=== PATIENT | female | born 1945 | race Caucasian/White ===

== ENCOUNTER 2018-03-22 07:58 | Day surgery (SDC) | payer MEDICARE, SELFPAY ==
--- NOTE | 2018-03-19 12:59 | PM.PREOP ---
Pre-operative Note Interval Note History & Physical reviewed/Exam performed by Physician: Yes Changes to H&P: No
--- NOTE | 2018-03-19 13:06 | P.OP_ITS ---
Operative Date/Time/Diagnoses Date of procedure: 03/22/18 Time of procedure: 09:45 Procedure & Clinicians Procedure: Preoperative diagnoses: 1. Left nuclear sclerotic and cortical cataract. Postoperative diagnoses: 1. Cataract removed by phacoemulsification with placement of posterior chamber intraocular lens. Procedure: Phacoemulsification with posterior chamber intraocular lens implant Surgeon: Anai Alamo MD Complications: None Specimen: None Implant:[id number]+17.5 Blood loss: None Anesthesia: Retrobulbar with monitored standby Description of procedure: Patient presents with a complaint of decreased vision due to cataract which is affecting activities of daily living. The patient wants surgery to improve vision. The patient was taken to the operating room and given IV sedation. A retrobulbar block insert consisting of 6 cc of 2% xylocaine without epinephrine mixed half and half with 0.5% Marcaine with 1 cc of hyaluronidase added is placed between the medial and lateral 1/3 of the inferior orbital rim. Lid akinesia is obtain with 1% xylocaine with epinephrine infiltrated along the lid margin. The eye is manually massaged for 30 sec, prepped using Betadine solution, and draped in the usual sterile fashion. Temporal approach was made, a 1 mm side-port incision was made 90? from the proposed clear corneal incision position. Phenylephrine 1.5% mixed with 1% xylocaine 0.2 cc was placed into the anterior chamber. Viscoat followed by Selin was then placed. A 2.6 mm clear incision with a 2.6 mm blade was placed. A 360 degree capsulorrhexis style capsulotomy was then performed with a cystitome needle on a Healon. Hydrodelineation and hydrodissection were performed. The phacoemulsification unit is introduced, and sculpting used to groove the central lens. It is then removed in chopping mode. Epi nucleus is removed with epinuclear mode and irrigation aspiration was used to remove the peripheral cortex. The posterior capsule is polished. The intraocular lens is selected, inspected, power confirmed, and placed in the posterior chamber. The pupil was constricted with Miostat.. The wound was stromally hydrated and tested for leaks, there was none and it was left sutureless. Vigamox 0.1 cc was placed into the anterior chamber. Kenalog 0.2 cc was placed in the superior subconjunctival space. A drop of antibiotic and was placed and the eye was patched and shielded. The patient was stable and returned to the recovery room in excellent condition. Dictated by: Anai Alamo MD Copy to: [facility]
[2018-03-22 08:50] VITALS: BP 136/72; PULSE 59; RESP 18; TEMP 36.3; O2SAT 95; BMI 33.3
[2018-03-22] MEDS: PROPARACAINE 0.5% OPHTH SOL 2 DROPS EYE-OP (08:50)
[2018-03-22] MEDS: CATARACT EYE COMPOUND (10 DROPS/SYRINGE) 3 DROPS EYE-OP ×3 (08:55→09:05)
[2018-03-22] MEDS: CHONDROIDTIN/SOD HYALURONATE 1.05 ML SYRINGE INTRAOCULA (10:16)
[2018-03-22] MEDS: HYALURONATE SODIUM 10 MG/ML SYRINGE INJ (10:16)
[2018-03-22] MEDS: CARBACHOL 1.5 ML VIAL INJ (10:16)
[2018-03-22] MEDS: BALANCED SALT IRRIG SOLN NO.2 15 ML IRR (10:16)
[2018-03-22] MEDS: MOXIFLOXACIN OPHTH DROPS 3 ML BOTTLE 2 DROPS INJ (10:17)
[2018-03-22] MEDS: NEOMYCIN/POLY/DEX OPHTH OINT 1 APPLIC EYE-LEFT (10:17)
[2018-03-22] MEDS: LIDOCAINE 1% W/EPI INJ 20 ML INJ (10:17)
[2018-03-22] MEDS: OFLOXACIN 0.3% OPHTH 5 ML 2 DROPS EYE-LEFT (10:18)
[2018-03-22] MEDS: PHENYLEPHRINE/LIDOCAINE VIAL (OR) 0.2 ML EYE-OP (10:18)
[2018-03-22] MEDS: TRIAMCINOLONE 50 MG/5 ML VIAL INJ (10:19)
[2018-03-22] MEDS: BALANCED SALT IRRIG SOLN NO.2 500 ML, EPINEPHrine 1 MG IRR (10:19)
[2018-03-22] MEDS: LIDOCAINE 2% 4 ML, BUPIVACAINE 0.5% (PF) 4 ML, HYALURONIDASE 150 UNIT INJ (10:20)
[2018-03-22 10:35] VITALS: BP 130/67; PULSE 55; RESP 15; TEMP 36.2; O2SAT 100
== END 2018-03-22 10:55 | disposition home or self-care (01) ==
LOC: OR 08:00
PROVIDERS: PCP Family Medicine; Visit Provider Ophthalmology
DX: H25.12 Age-related nuclear cataract, left eye (principal); I10 Essential (primary) hypertension
CPT/HCPCS: J0171; J2250; J2704; J3010; J3301; J3470

== ENCOUNTER 2018-04-05 06:27 | Day surgery (SDC) | payer MEDICARE, SELFPAY ==
--- NOTE | 2018-03-30 08:55 | PM.PREOP ---
Pre-operative Note Interval Note History & Physical reviewed/Exam performed by Physician: Yes Changes to H&P: No
--- NOTE | 2018-04-04 14:28 | PM.OP.1 ---
Operative Date/Time/Diagnoses Date of procedure: 04/05/18 Time of procedure: 07:45 Procedure & Clinicians Procedure: Preoperative diagnoses: 1. Right nuclear sclerotic and cortical cataract. 2. GERD Postoperative diagnoses: 1. Cataract removed by phacoemulsification with placement of posterior chamber intraocular lens. Procedure: Phacoemulsification with posterior chamber intraocular lens implant Surgeon: Anai Alamo MD Complications: None Specimen: None Implant: ZCBOO+18.0 Blood loss: None Anesthesia: Retrobulbar with monitored standby Description of procedure: Patient presents with a complaint of decreased vision due to cataract which is affecting activities of daily living. The patient wants surgery to improve vision. The patient was taken to the operating room and given IV sedation. A retrobulbar block consisting of 6 cc of 2% xylocaine without epinephrine mixed half and half with 0.5% Marcaine with 1 cc of hyaluronidase added is placed between the medial and lateral 1/3 of the inferior orbital rim. Lid akinesia is obtain with 1% xylocaine with epinephrine infiltrated along the lid margin. The eye is manually massaged for 30 sec, prepped using Betadine solution, and draped in the usual sterile fashion. Temporal approach was made, a 1 mm side-port incision was made 90? from the proposed clear corneal incision position. Phenylephrine 1.5% mixed with 1% xylocaine 0.2 cc was placed into the anterior chamber. Viscoat followed by Selin was then placed. A 2.6 mm clear incision with a 2.6 mm blade was placed. A 360 degree capsulorrhexis style capsulotomy was then performed with a cystitome needle on a Healon. Hydrodelineation and hydrodissection were performed. The phacoemulsification unit is introduced, and sculpting notice used to groove the central lens. It is then removed in chopping mode. Epi nucleus is removed with epinuclear mode and irrigation aspiration was used to remove the peripheral cortex. The posterior capsule is polished. The intraocular lens is selected, inspected, power confirmed, and placed in the posterior chamber. The pupil was constricted with Miostat.. The wound was stromally hydrated and tested for leaks, there was none and it was left sutureless. Vigamox 0.1 cc was placed into the anterior chamber. Kenalog 0.2 cc was placed in the superior subconjunctival space. A drop of antibiotic and was placed and the eye was patched and shielded. The patient was stable and returned to the recovery room in excellent condition. Dictated by: Anai Alamo MD Copy to: [facility]
[2018-04-05] MEDS: PROPARACAINE 0.5% OPHTH SOL 2 DROPS EYE-OP (07:20)
[2018-04-05 07:29] VITALS: BP 140/82; PULSE 60; RESP 20; TEMP 36.3; O2SAT 96
[2018-04-05 07:31] VITALS: BMI 33.6
--- NOTE | 2018-04-05 07:35 | PM.PREOP ---
Pre-operative Note Interval Note History & Physical reviewed/Exam performed by Physician: Yes Changes to H&P: No
[2018-04-05] MEDS: CATARACT EYE COMPOUND (10 DROPS/SYRINGE) 3 DROPS EYE-OP (07:37)
[2018-04-05] MEDS: CARBACHOL 1.5 ML VIAL INJ (08:13)
[2018-04-05] MEDS: BALANCED SALT IRRIG SOLN NO.2 15 ML IRR (08:13)
[2018-04-05] MEDS: HYALURONATE SODIUM 10 MG/ML SYRINGE INJ (08:14)
[2018-04-05] MEDS: LIDOCAINE 1% W/EPI INJ 20 ML INJ (08:14)
[2018-04-05] MEDS: MOXIFLOXACIN OPHTH DROPS 3 ML BOTTLE 2 DROPS INJ (08:14)
[2018-04-05] MEDS: CHONDROIDTIN/SOD HYALURONATE 1.05 ML SYRINGE INTRAOCULA (08:14)
[2018-04-05] MEDS: OFLOXACIN 0.3% OPHTH 5 ML 2 DROPS EYE-RIGHT (08:15)
[2018-04-05] MEDS: NEOMYCIN/POLY/DEX OPHTH OINT 1 APPLIC EYE-RIGHT (08:15)
[2018-04-05] MEDS: TRIAMCINOLONE 50 MG/5 ML VIAL INJ (08:16)
[2018-04-05] MEDS: PHENYLEPHRINE/LIDOCAINE VIAL (OR) 0.2 ML EYE-OP (08:16)
[2018-04-05] MEDS: BALANCED SALT IRRIG SOLN NO.2 500 ML, EPINEPHrine 1 MG IRR (08:17)
[2018-04-05] MEDS: LIDOCAINE 2% 4 ML, BUPIVACAINE 0.5% (PF) 4 ML, HYALURONIDASE 150 UNIT INJ (08:17)
[2018-04-05 08:49] VITALS: BP 128/64; PULSE 48; RESP 12; TEMP 36.2; O2SAT 97
== END 2018-04-05 09:15 | disposition home or self-care (01) ==
PROVIDERS: Visit Provider Ophthalmology
DX: H25.11 Age-related nuclear cataract, right eye (principal); K21.9 Gastro-esophageal reflux disease without esophagitis
CPT/HCPCS: J0171; J2250; J3010; J3301; J3470

== ENCOUNTER 2022-07-16 14:29 | Emergency (ER) | payer MEDICARE, SELFPAY ==
[2022-07-16 14:32] VITALS: BP 122/79; PULSE 96; RESP 15; TEMP 36.3; O2SAT 96; BMI 34.7
--- NOTE | 2022-07-16 14:39 | DI.RAD.S_ITS ---
PROCEDURE: XR LUMBAR SPINE 2-3V INDICATIONS: Fall with radiculopathy TECHNIQUE: 3 views of the lumbar spine were acquired. COMPARISON: None. FINDINGS: Bones: 5 [id number] vertebrae are present. Trace dextroconvex curvature of the lumbar spine. There is 2 mm grade 1 retrolisthesis at L1-2, 3 mm grade 1 retrolisthesis at L2-3, 4 mm grade 1 anterolisthesis at L4-5, and 3 mm grade 1 anterolisthesis at L5-S1. No vertebral body compression fractures. No suspicious bony lesions. Multilevel disc space narrowing degenerative endplate changes and facet hypertrophy are seen. Generalized osteopenia. Soft tissues: Overlying bowel gas pattern is normal. No suspicious soft tissue calcifications. Surgical clips are seen projecting over the right pelvis. IMPRESSION: 1. No acute osseous abnormality. If the symptoms persist, consider cross sectional imaging such as MRI or CT for further assessment. 2. Moderate multilevel spondylosis and degenerative spondylolisthesis. Approved by: Jesus Hanna M.D. on 07/16/2022 at 15:22
--- NOTE | 2022-07-16 14:39 | DI.RAD.S_ITS ---
PROCEDURE: XR TIBIA FUBULA RT 2V INDICATIONS: Fall with radiculopathy TECHNIQUE: 2 views of the tibia and fibula were acquired. COMPARISON: None. FINDINGS: Bones: No acute fractures or dislocations. No suspicious bony lesions. Soft tissues: Chondrocalcinosis noted in the lateral femorotibial compartment. IMPRESSION: 1. No acute osseous abnormality. If clinical suspicion and/or symptoms persist, additional imaging with repeat plain films, or advanced imaging (e.g. CT, MRI) may be helpful for further assessment. 2. Chondrocalcinosis. Approved by: Jesus Hanna M.D. on 07/16/2022 at 15:24
--- NOTE | 2022-07-16 14:43 | ED_ITS ---
HPI - Fall <Naz Claudio Jjnydia [facility] - Last Filed: 07/16/22 15:51> General Chief Complaint: Fall Stated Complaint: fall,right leg injury Time Seen by Provider: 07/16/22 14:34 Source: patient Mode of arrival: Wheelchair History of Present Illness HPI Narrative: This is a 77-year-old female emergency department after a fall at 10:00 in which she hurt her right lower leg. States that she has a history of low back pain, has been working in the [employer] and having more activity than usual recently, states that her right leg just gave out which could have been due to her sciatica and she fell down hurting her right leg. Denies hitting her head, she is not anticoagulated, states that she has had urinary frequency and urgency, dysuria and has had more physical activity this week than usual. She denies any numbness or tingling, weakness, shooting or nerve like pain at this time. She states that her pain is a 3/10 at rest, it is worse when she bears weight. Her pain is on the lateral aspect of her right lower leg. Related Data Home Medications Medication Instructions Recorded Confirmed fluticasone propionate 220 1 puff INH BID PRN Shortness Of 04/10/12 03/22/18 mcg/actuation HFA aerosol inhaler Breath ##0 (Flovent HFA) Multi Vitamin 03/22/18 losartan 25 mg tablet 50 mg PO QAM 03/22/18 03/22/18 Flonase Allergy Relief 1 spr/day inhalation 04/05/18 albuterol sulfate 2 puff inhalation QID PRN Dyspnea 04/05/18 04/05/18 naproxen sodium 220 mg PO BID 04/05/18 04/05/18 omeprazole 20 mg PO BID 04/05/18 04/05/18 oxybutynin chloride 1 tab PO TID PRN Bladder Spasms 04/05/18 04/05/18 oxybutynin chloride 5 mg PO DAILY 04/05/18 04/05/18 valacyclovir 1 tab PO BID PRN Rash 04/05/18 04/05/18 Previous Rx's Medication Instructions Recorded cephalexin 500 mg capsule 500 mg PO QID 7 days #28 caps 07/16/22 diclofenac sodium 1 % topical gel 2 g topical QID PRN Pain #100 grams 07/16/22 hydrocodone 5 mg-acetaminophen 325 1 tab PO BID PRN pain #14 tabs 07/16/22 mg tablet lidocaine 5 % topical patch 1 patch topical DAILY PRN pain #30 07/16/22 (Lidoderm) ea prednisone 20 mg tablet 20 mg PO DAILY #3 tabs 07/16/22 Allergies Allergy/AdvReac Type Severity Reaction Status Date / Time No Known Drug Allergies Allergy Verified 07/16/22 14:34 Review of Systems <JEANNETTE Pizarro - Last Filed: 07/16/22 15:51> Review of Systems ROS Unobtainable: All systems reviewed & are unremarkable except as noted in HPI and below Patient History <JEANNETTE Pizarro - Last Filed: 07/16/22 15:51> Social History household members: none Smoking Status: Unknown if ever smoked Smoking Status: Unknown if ever smoked alcohol intake frequency: holidays/special occasions only Substance Use Type: does not use Exam <JEANNETTE Pizarro - Last Filed: 07/16/22 15:51> Narrative Exam Narrative: Reviewed vitals signs and nursing notes. General: Pleasant, sitting upright, in no acute distress, well groomed, afebrile HEENT: symmetrical facial expressions, moist mucous membranes, neck is supple CV: regular rate and rhythm, warm extremities Respiratory: normal work of breathing, without tachypnea or hypoxia. GI: abdomen soft, nondistended, without CVA tenderness bilaterally. MSK: moves all extremities, no weakness, normal tone, sitting in wheelchair, small abrasion on lateral aspect her right lower leg, nontender lumbar and sacral spine to palpation, no tenderness over her right hip, no knee tenderness to palpation, full range of motion of her right knee without deficit. No ankle pain, knee pain, some right posterior hip pain. No evidence wound or injury other than a small abrasion on her right lower leg. Right leg lift exacerbates her low back pain but she denies back pain at rest. No flank pain bilaterally Skin: brisk capillary refill, without rash or wound Neuro: clear speech and normal cognition, A&O x3, GCS 15, no focal motor or sensation deficits Initial Vital Signs Initial Vital Signs: Vital Signs Temperature 97.4 F L 05/26/23 14:32 Pulse Rate 96 H 07/16/22 14:32 Respiratory Rate 15 07/16/22 14:32 Blood Pressure 122/79 07/16/22 14:32 Pulse Oximetry 96 07/16/22 14:32 Oxygen Delivery Method Room Air 07/16/22 14:32 <Jay Cedillo DO - Last Filed: 07/16/22 15:54> Initial Vital Signs Initial Vital Signs: Vital Signs Temperature 97.4 F L 07/16/22 14:32 Pulse Rate 96 H 07/16/22 14:32 Respiratory Rate 15 07/16/22 14:32 Blood Pressure 122/79 07/16/22 14:32 Pulse Oximetry 96 07/16/22 14:32 Oxygen Delivery Method Room Air 07/16/22 14:32 Course <JEANNETTE Pizarro - Last Filed: 07/16/22 15:51> Orders Ordered: ED Orders 07/16/22 14:39 XR lumbar spine 2-3V Stat XR tibia fibula RT 2V Stat 07/16/22 14:49 Urine Culture Stat Urine Microscopic Stat Discontinued Medications Hydrocodone Bitart/Acetaminophen (Hydrocodone/Acet 5/325 Tablet) 1 tab PO NOW ONE Stop: 07/16/22 14:43 Last Admin: 07/16/22 15:04 Dose: 1 tab Documented By: SELVIN Cephalexin HCl (Cephalexin 250 Mg Capsule) 500 mg PO NOW ONE Stop: 07/16/22 15:04 Last Admin: 07/16/22 15:08 Dose: 500 mg Documented By: SELVIN Lidocaine (Lidocaine Patch 1 Each Adh..Patch) 1 each TOP NOW ONE Stop: 07/16/22 14:43 Last Admin: 07/16/22 15:04 Dose: 1 each Documented By: SELVIN Methocarbamol (Methocarbamol 500 Mg Tablet) 250 mg PO NOW ONE Stop: 07/16/22 15:04 Last Admin: 07/16/22 15:09 Dose: 250 mg Documented By: SELVIN Prednisone (Prednisone 20 Mg Tablet) 20 mg PO NOW ONE Stop: 07/16/22 14:43 Last Admin: 07/16/22 15:04 Dose: 20 mg Documented By: SELVIN Vital Signs Vital signs: Vital Signs - 8 hr 07/16/22 14:32 Temperature 97.4 F L Pulse Rate 96 H Respiratory Rate 15 Blood Pressure 122/79 Pulse Oximetry 96 Oxygen Delivery Method Room Air <Jay Cedillo DO - Last Filed: 07/16/22 15:54> Orders Ordered: ED Orders 07/16/22 14:39 XR lumbar spine 2-3V Stat XR tibia fibula RT 2V Stat 07/16/22 14:49 Urine Culture Stat Urine Microscopic Stat Discontinued Medications Hydrocodone Bitart/Acetaminophen (Hydrocodone/Acet 5/325 Tablet) 1 tab PO NOW ONE Stop: 07/16/22 14:43 Last Admin: 07/16/22 15:04 Dose: 1 tab Documented By: SELVIN Cephalexin HCl (Cephalexin 250 Mg Capsule) 500 mg PO NOW ONE Stop: 07/16/22 15:04 Last Admin: 07/16/22 15:08 Dose: 500 mg Documented By: SELVIN Lidocaine (Lidocaine Patch 1 Each Adh..Patch) 1 each TOP NOW ONE Stop: 07/16/22 14:43 Last Admin: 07/16/22 15:04 Dose: 1 each Documented By: SELVIN Methocarbamol (Methocarbamol 500 Mg Tablet) 250 mg PO NOW ONE Stop: 07/16/22 15:04 Last Admin: 07/16/22 15:09 Dose: 250 mg Documented By: SELVIN Prednisone (Prednisone 20 Mg Tablet) 20 mg PO NOW ONE Stop: 07/16/22 14:43 Last Admin: 07/16/22 15:04 Dose: 20 mg Documented By: SELVIN Vital Signs Vital signs: Vital Signs - 8 hr 07/16/22 14:32 Temperature 97.4 F L Pulse Rate 96 H Respiratory Rate 15 Blood Pressure 122/79 Pulse Oximetry 96 Oxygen Delivery Method Room Air MDM - Fall <JEANNETTE Pizarro - Last Filed: 07/16/22 15:51> Lab Data Labs: Lab Results 07/16/22 Range/Units 14:49 Urine RBC None seen (0-5/HPF) Urine WBC 0-1/hpf (0-5/HPF) Ur Squamous Epith Cells 10-30 /hpf H (0-5/HPF) Amorphous Sediment 2+ Urine Bacteria Moderate (10-30) H (None) Urine Mucus 1+ H (Negative) Ur Culture Indicated? Specimen cultured Urine Dip Bedside Urine Glucose Negative Bedside Urine Bilirubin - Negative Bedside Urine Ketone +/- 5 Urine Specific [place] 1.030 Bedside Urine Occult Blood - Negative Bedside Urine pH 6.0 Bedside Urine Protein +/- 15 Bedside Urine Urobilinogen - Negative Bedside Urine Nitrite - Negative Bedside Urine Leukocytes +/- 15 Esterase Imaging Data Extremity x-ray #1: Radiologist's Impression: PROCEDURE:? XR TIBIA FUBULA RT 2V ? INDICATIONS:? Fall with radiculopathy ? TECHNIQUE:? 2 views of the tibia and fibula were acquired.? ? COMPARISON:? None. ? FINDINGS:? ? Bones:? No acute fractures or dislocations.? No suspicious bony lesions.? ? Soft tissues:? Chondrocalcinosis noted in the lateral femorotibial compartment. ? IMPRESSION:? 1. No acute osseous abnormality.? If clinical suspicion and/or symptoms persist, additional imaging with repeat plain films, or advanced imaging (e.g. CT, MRI) may be helpful for further assessment. 2. Chondrocalcinosis.? Approved by: Jesus Hanna M.D. on 07/16/2022 at 15:24? Extremity x-ray #2: Radiologist's Impression: PROCEDURE:? XR LUMBAR SPINE 2-3V ? INDICATIONS:? Fall with radiculopathy ? TECHNIQUE:? 3 views of the lumbar spine were acquired.? ? COMPARISON:? None. ? FINDINGS:? ? Bones:? 5 [id number] vertebrae are present.? Trace dextroconvex curvature of the lumbar spine.? There is 2 mm grade 1 retrolisthesis at L1-2, 3 mm grade 1 retrolisthesis at L2-3, 4 mm grade 1 anterolisthesis at L4-5, and 3 mm grade 1 anterolisthesis at L5-S1. ?No vertebral body compression fractures.? No suspicious bony lesions.? Multilevel disc space narrowing degenerative endplate changes and facet hypertrophy are seen.? Generalized osteopenia. ? Soft tissues:? Overlying bowel gas pattern is normal.? No suspicious soft tissue calcifications.? Surgical clips are seen projecting over the right pelvis. ? IMPRESSION:? 1. No acute osseous abnormality. If the symptoms persist, consider cross sectional imaging such as MRI or CT for further assessment. 2. Moderate multilevel spondylosis and degenerative spondylolisthesis.? Approved by: Jesus Hanna M.D. on 07/16/2022 at 15:22? MDM Narrative Medical decision making narrative: Chief Complaint: Right lower leg pain Independent historian: Patient Multiple etiologies for patient's complaint considered including, but not limited to: Contusion, abrasion, lumbar radiculopathy, urinary tract infection, dehydration, fracture, hematoma, ligamental injury, exacerbation of lumbar degenerative disc disease I have independently reviewed the patient's vital signs and nursing notes as well as prior records if available. My interpretation of imaging: Lumbar x-ray shows multilevel spondylosis and degenerative disc disease, and spondylolisthesis, Tib-fib right leg x-ray is ne gative for acute abnormality but shows chondrocalcinosis. This could be causing patient's pain as this is where she had impact and complains of pain currently. Lidocaine patch was placed over this. Her pain and her symptoms improved over her course. She was requesting crutches for ambulation because she complains is too much pain with bearing weight, axial load does not exacerbate pain. No calf tenderness to palpation or tenderness along the deep vein system. No circumferential edema. My interpretation of lab studies: Urine dip is positive for ketones, leukocytes, sent down for microscopy which shows moderate bacteria. Urine culture is pending, patient was treated with cephalexin and 7 day q.i.d. course was initiated and sent her pharmacy Patient had a trial ambulation with crutches and tolerated this well, they were fitted to her appropriately. She does not have any red flag symptoms of low back pain, nontender over her spinal processes, is able to bear weight, and given crutches for discharge. She will follow up with her primary care provider and her physical therapist and encouraged to avoid exertional activities for least 1 week until her symptoms all improved. Social considerations that may affect disposition: none Questions are addressed and there is agreement with the plan and for follow-up. I consulted with the ED attending physician Dr. Cedillo as needed for higher level of care considerations and they were available for discussion and recommendations regarding plan of care and diagnostic testing. Patient is appropriate for outpatient management. <Jay Cedillo, DO - Last Filed: 07/16/22 15:54> Lab Data Labs: Lab Results 07/16/22 Range/Units 14:49 Urine RBC None seen (0-5/HPF) Urine WBC 0-1/hpf (0-5/HPF) Ur Squamous Epith Cells 10-30 /hpf H (0-5/HPF) Amorphous Sediment 2+ Urine Bacteria Moderate (10-30) H (None) Urine Mucus 1+ H (Negative) Ur Culture Indicated? Specimen cultured Urine Dip Bedside Urine Glucose Negative Bedside Urine Bilirubin - Negative Bedside Urine Ketone +/- 5 Urine Specific [place] 1.030 Bedside Urine Occult Blood - Negative Bedside Urine pH 6.0 Bedside Urine Protein +/- 15 Bedside Urine Urobilinogen - Negative Bedside Urine Nitrite - Negative Bedside Urine Leukocytes +/- 15 Esterase Discharge Plan Departure Patient Disposition: Home Clinical Impression: Chondrocalcinosis, Acute UTI, Osteopenia determined by x-ray, Spondylosis, Spondylolisthesis of lumbar region Fall Qualifiers: Encounter type: initial encounter Qualified Code(s): W19.XXXA - Unspecified fall, initial encounter Contusion of leg, right Qualifiers: Encounter type: initial encounter Qualified Code(s): S80.11XA - Contusion of right lower leg, initial encounter Degenerative disk disease Qualifiers: Spinal region: lumbosacral Qualified Code(s): M51.37 - Other intervertebral dis c degeneration, lumbosacral region Instructions: Contusion, DI for Urinary Tract Infection (UTI), DI for Pseudogout, DI for Degenerative Disc Disease, DI for Lumbar Radiculopathy Activity Restrictions/Additional Instructions: *You have been diagnosed with a urinary tract infection, a fall with a leg injury. Your symptoms sound like more than 1 thing is going on, the urinary tract infection can exacerbate low back pain and then your fall with increased activity this week has irritated the nerve roots with some sciatica symptoms plus the injury to the lower leg. The x-rays do not show any acute fractures or acute bony abnormalities of concern. Means that this should heal in a week or 2 and start to improve over the next few days. Please use ice, elevate, and rest this muscle until it heals. Gentle activity without lots of projects will be helpful. Okay to still enjoy the rest of the day but you will need to stay hydrated, finish your antibiotics, and restrain your exertion. Schedule follow up with your primary care provider for an evaluation of your low back pain as your symptoms may benefit from physical therapy outside of this flare. Use the topical diclofenac gel and or lidocaine patches to help treat the pain, the pain is due to calcium this area after time and since it got injured, this has disrupted that tissue coughing inflammation. If you can tolerate a leave, please try leave and Tylenol daily to help treat this pain, otherwise use hydrocodone, okay to take Tylenol 650 mg up to 3 times a day in conjunction with this. Please follow-up with your primary care provider, gradually increase your activity as tolerated. *What to do: *Please continue to take your regular medications as directed. [ x] New medication prescriptions sent to your pharmacy: [[facility]] [ ] New medication written as a paper prescription [ ] No new medications given *Please call and schedule follow up with your primary care provider in 2-3 days, at least for an update. Let them know you were seen in the Emergency Department for the above problem. We will electronically transmit a record of today's note if your PCP or specialist is in our system. *If you do not have a primary care provider please contact [phone] to establish care with one of the [facility] primary care providers. *Return to the Emergency Department for worsening symptoms, inability to keep liquids down, fever greater than 101F, chills, or other concerning symptom. Prescriptions: New lidocaine [Lidoderm] 5 % adhesive patch,medicated 1 patch topical DAILY PRN (Reason: pain) Qty: 30 0RF Rx Instructions: leave on most painful area for up to 12 hrs hydrocodone-acetaminophen 5-325 mg tablet 1 tab PO BID PRN (Reason: pain) Qty: 14 0RF prednisone 20 mg tablet 20 mg PO DAILY Qty: 3 0RF diclofenac sodium 1 % gel 2 g topical QID PRN (Reason: Pain) Qty: 100 0RF Rx Instructions: Apply to area of pain up to 4 times a day cephalexin 500 mg capsule 500 mg PO QID 7 Days Qty: 28 0RF No Action Flovent HFA 12 GM HFA aerosol inhaler 1 puff INH BID PRN (Reason: Shortness Of Breath) Qty: 0 Flonase Allergy Relief 1 spr/day Inhalation albuterol sulfate 2 puff Inhalation QID PRN (Reason: Dyspnea) naproxen sodium 220 mg PO BID omeprazole 20 mg PO BID oxybutynin chloride 5 mg PO DAILY oxybutynin chloride 1 tab PO TID PRN (Reason: Bladder Spasms) valacyclovir 1 tab PO BID PRN (Reason: Rash) Rx Instructions: Use for five days losartan 25 mg Tablet 50 mg PO QAM Patient Comments: unsure of dose Multi Vitamin Patient Comments: pt unsure of dose Stand Alone Forms: Patient Portal/API <Jay Cedillo DO - Last Filed: 07/16/22 15:54> Cosign ED Attending Cosignature Attestation: I was immediately available in the department for consultation. This documentation has been reviewed and I agree with assessment and plan. Supervised by Jay Cedillo DO
[2022-07-16 15:00] LABS: Amorphous Sediment Urine 2+; Bacteria Urine Moderate (10-30); Culture Indicated Urine Specimen Cultured; Mucus Urine 1+ (Negative); RBC Urine None Seen (0-5/HPF); Squamous Epithelial Cell Urine 10-30 /HPF (0-5/HPF); WBC Urine 0-1/HPF (0-5/HPF)
[2022-07-16] MEDS: LIDOCAINE PATCH 1 EACH ADH..PATCH TOP (15:04)
[2022-07-16] MEDS: HYDROCODONE/ACET 5/325 TABLET 1 TAB PO (15:04)
[2022-07-16] MEDS: predniSONE 20 MG TABLET PO (15:04)
[2022-07-16] MEDS: cephALEXin 250 MG CAPSULE 500 MG PO (15:08)
[2022-07-16] MEDS: methocarbamoL 500 MG TABLET 250 MG PO (15:09)
--- NOTE | 2022-07-16 15:17 | PC.NURSE ---
Patient brought back to room five, medicated and updated on results to this point. Patient placed back in lobby with friend
== END 2022-07-16 15:50 | disposition home or self-care (01) ==
PROVIDERS: Emergency Provider Nurse Practitioner Critical Care Medicine
DX: S80.11XA Contusion of right lower leg, initial encounter (principal); M51.37 Other intervertebral disc degeneration, lumbosacral region; N39.0 Urinary tract infection, site not specified; M43.16 Spondylolisthesis, lumbar region; M85.80 Other specified disorders of bone density and structure, unspecified site; M11.20 Other chondrocalcinosis, unspecified site; W18.30XA Fall on same level, unspecified, initial encounter
CPT/HCPCS: 72100; 73590; 81003; 81015; 87077; 87086; 87186; 99284